=== PATIENT | female | born 1995 | race Caucasian/White ===

== ENCOUNTER 2023-02-07 14:55 | Emergency (ER) | payer OTHER, SELFPAY ==
[2023-02-07 15:01] VITALS: BP 128/89; PULSE 98; RESP 18; TEMP 36.3; O2SAT 98; BMI 4586.7
--- NOTE | 2023-02-07 15:18 | ED_ITS ---
HPI - Skin/Abscess/Foreign Bdy General Date Seen: 02/07/23 Chief complaint: Skin/Abscess/Foreign Body Stated complaint: Lac R knuckles Time Seen by Provider: 02/07/23 14:56 Source: patient Mode of arrival: ambulatory Limitations: no limitations History of Present Illness HPI narrative: Patient is 27-year-old female with no pertinent medical problems presenting to emergency department left to the extensor surface of her 2nd and 3rd digits on her right hand. Laceration on the 2nd digit is very small and between the DIP and PIP. Laceration over the PIP is slightly larger on the 3rd digit. She states he was changing a razor blade on a scraper with step the caught her. She is not up-to-date on tetanus and does not want a tetanus vaccine. She has no other concerns at this time. Related Data Home Medications Medication Instructions Recorded Confirmed No Known Home Medications 02/07/23 02/07/23 Allergies Allergy/AdvReac Type Severity Reaction Status Date / Time No Known Drug Allergies Allergy Verified 02/07/23 15:03 Review of Systems Narrative: Negative unless stated in HPI PFSH PFSH Social History Smoking Status: Never smoker Non-prescribed substance use: denies use Exam Narrative: Exam Narrative: Const: Well-nourished, Well-developed, in no distress Eyes: PERRL, no conjunctival injection, and symmetrical lids HENT: Atraumatic external nose and ears. Moist mucous membranes. MSK:Extremities w/o deformity, Normal Active ROM Skin: Warm, Dry. Small 0.25 cm laceration on the right 2nd digit to 2018. P oximeter service, about 0.5 cm laceration on the AP extensor surface 3rd finger right hand Neuro: Normal Muscle tone, No focal neurological deficits. Psych: Awake, Alert, & Oriented x3. Appropriate mood and affect. Const: Vital Signs, click to edit/add: Vital Signs - 24 hr 02/07/23 15:01 Temperature 97.3 F L Pulse Rate [Pulse Oximeter] 98 Respiratory Rate 18 Blood Pressure [Ri ght Upper Arm] 128/89 Pulse Oximetry 98 Oxygen Delivery Me thod Room Air Course Vital Signs Vital signs: Initial Vital Signs Temperature 97.3 F L 02/07/23 15:01 Temperature Source Temporal Artery Scan 02/07/23 15:01 Pulse Rate 98 02/07/23 15:01 Pulse Rhythm Regular 02/07/23 15:01 Respiratory Rate 18 02/07/23 15:01 Blood Pressure 128/89 02/07/23 15:01 Blood Pressure Mean 102 02/07/23 15:01 Blood Pressure Position Sitting 02/07/23 15:01 Pulse Oximetry 98 02/07/23 15:01 Oxygen Delivery Method Room Air 02/07/23 15:01 Vital Signs Temperature 97.3 F L 02/07/23 15:01 Pulse Rate 98 02/07/23 15:01 Respiratory Rate 18 02/07/23 15:01 Blood Pressure 128/89 02/07/23 15:01 Pulse Oximetry 98 02/07/23 15:01 Oxygen Delivery Method Room Air 02/07/23 15:01 Temperature 97.3 F L 02/07/23 15:01 Pulse Rate 98 02/07/23 15:01 Respiratory Rate 18 02/07/23 15:01 Blood Pressure 128/89 02/07/23 15:01 Pulse Oximetry 98 02/07/23 15:01 Oxygen Delivery Method Room Air 02/07/23 15:01 MDM - Skin/Abscess/Foreign Bdy MDM Narrative Medical decision making narrative: Patient presents emergency department after work injury with 2 small lacerations on the extensor surface of her 2nd 3rd fingers right hand. Laceration on the 3rd digit could be amenable to repair but patient is not want sutures. All is over the D IP is relatively small and believe some simple skin glue will hold it adequately. Patient is not want her tetanus shot updated. We did adequately clean the wound and I see no signs of deep injuries and she has full range of motion of her hand. She is otherwise doing well and antibiotics are not necessary at this time by did give her return precautions in case she develops any infection to her fingers. Patient states she understands and will be discharged home Discharge Plan Discharge Clinical Impression: Laceration Patient Disposition: Home, Self-Care Condition: Stable Instructions: Skin Adhesive Care (ED) Additional Instructions: For next 6 months, once sutures are removed, whenever you go outside put a dab of sunscreen over the laceration site to improve scar appearance. Topical antibiotics are not necessary at this time. Your able to shower but do not scrub the area as a could lock the skin glue. The glue will fall off on its own But will be some mild redness around the laceration but if you see signs of infection return to the emergency department immediately for re-evaluation. Prescriptions: No Action No Known Home Medications Follow Up/Referrals: Liz Mckeon PA-C [Primary Care Provider] - Stand Alone Forms: Video Furnace Info Instructions
== END 2023-02-07 15:38 | disposition home or self-care (01) ==
PROVIDERS: Emergency Provider Student in an Organized Health Care Education/Training Program; PCP Physician Assistant Medical
DX: S61.212A Laceration without foreign body of right middle finger without damage to nail, initial encounter (principal); W26.9XXA Contact with unspecified sharp object(s), initial encounter
CPT/HCPCS: 12001; 95992; 99282; 99283